=== PATIENT | male | born 1990 | race Caucasian/White ===

== ENCOUNTER 2019-01-23 21:23 | Emergency (ER) | payer OTHER ==
[~2019-01-23] VITALS: Ht 180.3 cm; Wt 111.1 kg
[~2019-01-23 21:23] MED LIST: PROM25 PO; TRAM50 PO; Veetids 500500 MG PO
== END 2019-01-23 22:13 | disposition home or self-care (01) ==
LOC: ER 21:23
DX: K08.89 Other specified disorders of teeth and supporting structures (principal)
CPT/HCPCS: 99282